=== PATIENT | male | born 1955 | race Caucasian/White ===

== ENCOUNTER 2019-06-15 09:35 | Day surgery (SDC) | payer MEDICARE ==
[~2019-06-15] VITALS: Ht 177.8 cm; Wt 66.4 kg
[~2019-06-15 09:35] MED LIST: BUPIVACAINE/EPI 0.5% 1:200K ONE; HEPARIN 1,000 UNITS/ML, 10ML ONE
[2019-06-15] MEDS ORDERED: SODIUM CHLORIDE 0.9% 1,000 ML IV SCH (10:17)
[2019-06-15] MEDS ORDERED: CLON0.1T22 PO (10:24)
[2019-06-15] MEDS ORDERED: ALPR0.5T6 PO (10:24)
[2019-06-15] MEDS ORDERED: ATOR10TA9 PO (10:24)
[2019-06-15] MEDS ORDERED: OXYC-302 PO (10:24)
[2019-06-15] MEDS ORDERED: HYDR100T25 PO (10:24)
[2019-06-15] MEDS ORDERED: METO50TA82 PO (10:24)
[2019-06-15] MEDS ORDERED: LOSA100T14 PO (10:24)
[2019-06-15] MEDS ORDERED: PROM12.57 PO (10:24)
[2019-06-15] MEDS ORDERED: WARF3TAB52 PO (10:24)
[2019-06-15] MEDS ORDERED: FURO80TA3 PO (10:24)
[2019-06-15] MEDS ORDERED: LEVO150T5 PO (10:24)
[2019-06-15] MEDS ORDERED: AMLO10TA8 PO (10:24)
[2019-06-15] MEDS ORDERED: TERA10CA3 PO (10:24)
[2019-06-15 10:46] VITALS: BP 150/67
[2019-06-15 10:59] LABS: INTERNATIONAL NORMALIZED RATIO 1.11 (0.93-1.1); PROTHROMBIN TIME 11.6 Seconds (9.6-11.5)
[2019-06-15] MEDS ORDERED: MIDAZOLAM 1 MG/ML, 2ML ONE (11:37)
[2019-06-15] MEDS ORDERED: FENTANYL PF 250 MCG/5ML ONE (11:37)
[2019-06-15] MEDS ORDERED: PROPOFOL 50 ML ONE (11:38)
[2019-06-15] MEDS ORDERED: ROCURONIUM 10 MG/ML,10ML ONE (11:44)
[2019-06-15] MEDS ORDERED: ONDANSETRON 2MG/ML, 2ML ONE (11:44)
[2019-06-15] MEDS ORDERED: PROPOFOL 10 MG/ML, 50ML ONE (11:44)
[2019-06-15] MEDS ORDERED: CEFAZOLIN 1,000 MG ONE (11:44)
[2019-06-15] MEDS ORDERED: PROMETHAZINE 25 MG/ML, 1ML IV PRN (12:00)
[2019-06-15] MEDS ORDERED: METOPROLOL 1 MG/ML, 5ML IV PRN (12:00)
[2019-06-15] MEDS ORDERED: ACETAMINOPHEN 325 MG TABLET PO PRN (12:00)
[2019-06-15] MEDS ORDERED: hydrALAzine 20 MG/ML, 1ML IV PRN (12:00)
[2019-06-15] MEDS ORDERED: ONDANSETRON ODT 8 MG PO PRN (12:00)
[2019-06-15] MEDS ORDERED: OXYcodone 5 MG/5 ML ORAL.SOL UDC PO PRN (12:00)
[2019-06-15] MEDS ORDERED: DIAZEPAM 5 MG/ML, 2ML IVPush PRN (12:00)
[2019-06-15] MEDS ORDERED: MIDAZOLAM 1 MG/ML, 2ML IV PRN (12:00)
[2019-06-15] MEDS ORDERED: EPHEDRINE 50 MG/ML, 1ML IM PRN (12:00)
[2019-06-15] MEDS ORDERED: MORPHINE SULFATE 4 MG/ML, 1ML IVPush PRN (12:00)
[2019-06-15] MEDS ORDERED: FENTANYL PF 100 MCG/2ML IV PRN (12:00)
[2019-06-15] MEDS ORDERED: ONDANSETRON 2MG/ML, 2ML IV PRN (12:00)
[2019-06-15] MEDS ORDERED: DIPHENHYDRAMINE 50 MG/ML, 1ML IVPush PRN (12:00)
[2019-06-15] MEDS ORDERED: EPHEDRINE 50 MG/ML, 1ML IVPush PRN (12:00)
== END 2019-06-15 14:20 | disposition home or self-care (01) ==
LOC: OUT 09:35
PROVIDERS: ATTEND Surgery Vascular Surgery
DX: I12.0 Hypertensive chronic kidney disease with stage 5 chronic kidney disease or end stage renal disease (principal); N18.6 End stage renal disease; Z79.01 Long term (current) use of anticoagulants; Z79.890 Hormone replacement therapy; Z79.891 Long term (current) use of opiate analgesic; Z79.899 Other long term (current) drug therapy; Z87.891 Personal history of nicotine dependence; Z85.47 Personal history of malignant neoplasm of testis; Z86.718 Personal history of other venous thrombosis and embolism; Z88.5 Allergy status to narcotic agent; Z89.512 Acquired absence of left leg below knee; Z92.21 Personal history of antineoplastic chemotherapy; Z98.52 Vasectomy status; Z98.890 Other specified postprocedural states; Z82.49 Family history of ischemic heart disease and other diseases of the circulatory system
CPT/HCPCS: 36415; 49324; 80047; 85610; 93005; C1750; J0690; J1644; J2250; J2405; J2704; J3010; J7030

== ENCOUNTER 2020-03-14 10:21 | Observation (INO) | payer MEDICARE ==
[~2020-03-14] VITALS: Ht 177.8 cm; Wt 69.4 kg
[~2020-03-14 10:21] MED LIST changes: -OMNIPAQUE 350 MG/ML, 150 ML BOTTLE ONE
[2020-03-14] MEDS ORDERED: SODIUM CHLORIDE FLUSH 10ML SYR IVF ONE ×2 (11:00→11:30)
[2020-03-14 11:01] LABS: BASOPHILS # (AUTO) 0.03 x10^3/uL (0-0.1); BASOPHILS % (AUTO) 0 % (0-1); EOSINOPHILS # (AUTO) 0.11 x10^3/uL (0-0.4); EOSINOPHILS % (AUTO) 1 % (1-7); LYMPHOCYTES # (AUTO) 1.11 x10^3/uL (1-3.4); LYMPHOCYTES % (AUTO) 14 % (22-44); MD NO; MEAN CORPUSCULAR HEMOGLOBIN 28.8 pg (27.5-34.5); MEAN CORPUSCULAR VOLUME 89.9 fL (81-97); MEAN PLATELET VOLUME 6.6 fL (7.4-10.4); MONOCYTES # (AUTO) 0.95 x10^3/uL (0.2-0.8); MONOCYTES % (AUTO) 12 % (2-9); NEUTROPHILS # (AUTO) 5.81 x10^3/uL (1.8-6.8); NEUTROPHILS % (AUTO) 73 % (42-75); PLATELET COUNT 227 x10^3/uL (130-400); RED BLOOD COUNT 3.92 x10^6/uL (4.38-5.82); RED CELL DISTRIBUTION WIDTH 17.6 % (9.4-14.8)
--- NOTE | 2020-03-14 11:05 | NUR ---
PT CODE [address] ROOM #1. PT WAS OUTPATIENT CT. AFTER RECEIVING CONTRAST PT BECASUE NAUSEOUS AND WAS VOMITTING AND HAD A SUDDEN CP THAT HE DESCRIBED A BURNING. PT GETS CT SCANS TO ENSURE PROPER BLOOD FLOW BECAUSE HE HAS HX OF DVTS. PT TAKES COUMADIN. PT ALSO HAX HXOF CANCER. PT IS RESTING IN [facility]. EKG COMPLETE. LABS DRAWN. IS BEDSIDE. NAD.
[2020-03-14 11:08] LABS: INTERNATIONAL NORMALIZED RATIO 2.83 (0.93-1.1); PROTHROMBIN TIME 29.5 Seconds (9.6-11.5)
[2020-03-14 11:11] LABS: ALANINE AMINOTRANSFERASE 21 U/L (12-78); ALBUMIN 2.8 g/dL (3.4-5.0); ANION GAP 12 mmol/L (5-15); CALCIUM 9.8 mg/dL (8.5-10.1); CHLORIDE 93 mmol/L (98-107)
[2020-03-14 11:15] LABS: ALKALINE PHOSPHATASE 77 U/L (45-117); BILIRUBIN,TOTAL 0.5 mg/dL (0.2-1.0); TOTAL PROTEIN 6.3 g/dL (6.4-8.2); TROPONIN I 0.018 ng/mL (0.000-0.045)
[2020-03-14] MEDS ORDERED: MAALOX/HYOSCYAMINE/LIDOCAINE 45 ML BTL PO ONE (11:30)
[2020-03-14] MEDS ORDERED: MORPHINE SULFATE 4 MG/ML, 1ML IVPush PRN (11:30)
[2020-03-14] MEDS ORDERED: SODIUM CHLORIDE 0.9% 1,000 ML IV ONE (11:30)
[2020-03-14] MEDS ORDERED: MAALOX/HYOSCYAMINE/LIDOCAINE 45 ML BTL ONE (11:39)
[2020-03-14] MEDS ORDERED: SODIUM CHLORIDE FLUSH 10ML SYR IVF PRN (12:00)
[2020-03-14] MEDS ORDERED: MORPHINE SULFATE 4 MG/ML, 1ML ONE (12:26)
--- NOTE | 2020-03-14 12:30 | NUR ---
PT MEDICATED PER MAR
--- NOTE | 2020-03-14 13:01 | NUR ---
ATTEMTPED TO CALL MD TO PUT IN DIET ORDER. NO ANSWER
--- NOTE | 2020-03-14 13:10 | NUR ---
BEDSIDE REPORT FROM JUANCHO LO, PT ON MONITOR WITH CALL LIGHT WITHIN REACH. ATTEMPTED TO CALL MD FOR DIET ORDER AGAIN. NO ANSWER
--- NOTE | 2020-03-14 13:10 | NUR ---
Jim low in EDM - 03/14/20 at 1310 by ANGELO BEDSIDE REPORT FROM JUANCHO LO, PT ON MONITOR WITH CALL LIGHT WITHIN REACH. PT MEDICATED PER SEP. AWAITING LAB AND RAD
--- NOTE | 2020-03-14 14:24 | NUR ---
TASK RN: PT RESTING IN GURNEY W EYES CLOSED, EVEN/REGULAR RESPIRATIONS NOTED. PT EASILY ARROUSABLE TO VOICE. DENIES NEEDS OTHER THAN BEING HUNGRY. PT AWARE THAT THERE IS NO DIET ORDER IN PLACE AT THIS TIME. PRIMARY RN AWARE AND HAS ATTEMPTED TO CONTACT HOSPITALIST REGARDING DIET. PER TP RN AWAITING HOSPITAL BED ON TELE. HOSPITAL BED REQUESTED FOR PT WHILE IN ED.
--- NOTE | 2020-03-14 14:43 | NUR ---
PT PLACED ON HOSPITAL BED.
--- NOTE | 2020-03-14 15:33 | NUR ---
REPORT TO SID LO
[2020-03-14] MEDS ORDERED: METOPROLOL TARTRATE 50 MG TAB PO SCH ×2 (16:00→21:00)
[2020-03-14 16:08] VITALS: BP 161/73
[2020-03-14] MEDS: CALCIUM ACETATE 667 MG CAPSULE PO SCH ×3 (17:36→21:08)
[2020-03-14 19:08] LABS: TROPONIN I 0.046 ng/mL (0.000-0.045)
[2020-03-14 19:20] VITALS: BP 137/59
[2020-03-14] MEDS ORDERED: ATORVASTATIN 10 MG TABLET PO SCH (21:00)
[2020-03-14 21:01] VITALS: BP 141/54
[2020-03-14] MEDS: OXYcodone/APAP 5/325MG TABLET PO SCH (21:01)
[2020-03-14] MEDS: LOSARTAN 100 MG TAB PO SCH (21:06)
[2020-03-14] MEDS ORDERED: GENTAMICIN CRM 0.1%, 30GM TP SCH (22:00)
[2020-03-14 22:10] VITALS: BP 137/63
[2020-03-14] MEDS: CARVEDILOL 12.5 MG TABLET PO SCH (22:13)
[2020-03-14 23:55] LABS: TROPONIN I 0.072 ng/mL (0.000-0.045)
[2020-03-15 00:46] VITALS: BP 139/69
[2020-03-15] MEDS ORDERED: PANTOPRAZOLE 40MG TABLET PO SCH (06:00)
[2020-03-15 06:08] LABS: BASOPHILS # (AUTO) 0.05 x10^3/uL (0-0.1); BASOPHILS % (AUTO) 1 % (0-1); EOSINOPHILS # (AUTO) 0.23 x10^3/uL (0-0.4); EOSINOPHILS % (AUTO) 3 % (1-7); LYMPHOCYTES % (AUTO) 14 % (22-44); MD NO; MEAN CORPUSCULAR HEMOGLOBIN 29.9 pg (27.5-34.5); MEAN CORPUSCULAR HGB CONC 33.1 g/dL (33.2-36.2); MEAN CORPUSCULAR VOLUME 90.3 fL (81-97); MONOCYTES # (AUTO) 0.93 x10^3/uL (0.2-0.8); MONOCYTES % (AUTO) 10 % (2-9); NEUTROPHILS # (AUTO) 6.88 x10^3/uL (1.8-6.8); NEUTROPHILS % (AUTO) 73 % (42-75); PLATELET COUNT 237 x10^3/uL (130-400); RED BLOOD COUNT 3.66 x10^6/uL (4.38-5.82); RED CELL DISTRIBUTION WIDTH 18.1 % (9.4-14.8)
[2020-03-15 06:20] LABS: ANION GAP 10 mmol/L (5-15); CALCIUM 8.3 mg/dL (8.5-10.1); CHLORIDE 96 mmol/L (98-107); CHOLESTEROL, TOTAL 89 mg/dL (140-239); TRIGLYCERIDES 79 mg/dL (50-200); VLDL CHOLESTEROL 16 mg/dL (0-25)
[2020-03-15 06:22] LABS: CHOL/HDL RATIO 1.7; HDL CHOL % 60 % (26-37); HDL CHOLESTEROL (DIRECT) 53 mg/dL (40-60); LDL CHOLESTEROL,CALCULATED 20 mg/dL (54-169); LDL/HDL RATIO 0.4 (0.5-3.0)
[2020-03-15 06:28] LABS: TROPONIN I 0.075 ng/mL (0.000-0.045)
[2020-03-15 06:58] VITALS: BP 129/52
[2020-03-15] MEDS ORDERED: MAALOX/HYOSCYAMINE/LIDOCAINE 45 ML BTL PO ONE (08:00)
[2020-03-15] MEDS: OXYcodone/APAP 5/325MG TABLET PO SCH (08:16)
[2020-03-15] MEDS: CARVEDILOL 12.5 MG TABLET PO SCH (08:17)
[2020-03-15] MEDS: LOSARTAN 100 MG TAB PO SCH (08:17)
[2020-03-15] MEDS: CALCIUM ACETATE 667 MG CAPSULE PO SCH (08:18)
[2020-03-15] MEDS ORDERED: AMLODIPINE 10 MG TAB PO SCH (09:00)
[2020-03-15] MEDS ORDERED: FUROSEMIDE 80 MG TABLET PO SCH (09:00)
[2020-03-15] MEDS ORDERED: TERAZOSIN 5MG CAPSULE PO SCH (09:00)
[2020-03-15] MEDS ORDERED: LEVOTHYROXINE 150 MCG TABLET PO SCH (09:00)
[2020-03-15] MEDS ORDERED: WARFARIN 3 MG TABLET PO-COUM SCH (09:00)
[2020-03-15 11:07] LABS: TROPONIN I 0.069 ng/mL (0.000-0.045)
[2020-03-15 12:09] VITALS: BP 124/52
== END 2020-03-15 14:34 | disposition home or self-care (01) ==
LOC: ED 11:12 → EDIP 11:33 → INTOOBSV 11:33 → 5SO 16:12 → DCLOUNGE 03-15 14:29
PROVIDERS: ADMIT Internal Medicine; ATTEND Family Medicine
DX: R07.89 Other chest pain (principal); K21.9 Gastro-esophageal reflux disease without esophagitis; I73.9 Peripheral vascular disease, unspecified; I65.22 Occlusion and stenosis of left carotid artery; I12.0 Hypertensive chronic kidney disease with stage 5 chronic kidney disease or end stage renal disease; N18.6 End stage renal disease; D63.1 Anemia in chronic kidney disease; E03.9 Hypothyroidism, unspecified; R11.2 Nausea with vomiting, unspecified; F41.1 Generalized anxiety disorder; I20.0 Unstable angina; Z85.47 Personal history of malignant neoplasm of testis; Z86.19 Personal history of other infectious and parasitic diseases; Z79.899 Other long term (current) drug therapy; Z87.891 Personal history of nicotine dependence; Z99.2 Dependence on renal dialysis
CPT/HCPCS: 36415; 70498; 71045; 74174; 80048; 80053; 80061; 83880; 84484; 85025; 85610; 86705; 86706; 87340; 93005; 96361; 96374; 99285; G0378; J2270; J7030; Q9967; 90945

== ENCOUNTER → 2020-03-14 | Outpatient (CLI) | payer MEDICARE ==
[~2020-03-14] MED LIST changes: +ALPR0.5T6 PO; +AMLO10TA8 PO; +ATOR10TA9 PO; -BUPIVACAINE/EPI 0.5% 1:200K ONE; +CLON0.1T22 PO; +FURO80TA3 PO; -HEPARIN 1,000 UNITS/ML, 10ML ONE; +HYDR100T25 PO; +LEVO150T5 PO; +LOSA100T14 PO; +METO50TA82 PO; +OMNIPAQUE 350 MG/ML, 150 ML BOTTLE ONE; +OXYC-302 PO; +PROM12.57 PO; +TERA10CA3 PO; +WARF3TAB52 PO
== END | disposition home or self-care (01) ==
LOC: RAD 08:49
PROVIDERS: ATTEND Surgery Vascular Surgery
DX: I65.23 Occlusion and stenosis of bilateral carotid arteries (principal); I70.0 Atherosclerosis of aorta; R91.1 Solitary pulmonary nodule; R07.9 Chest pain, unspecified; I65.02 Occlusion and stenosis of left vertebral artery
CPT/HCPCS: 70498; 74174; Q9967